=== PATIENT | male | born 1990 | race American Indian/Alaskan Native ===

== ENCOUNTER 2017-03-03 11:07 | Emergency (ER) | payer OTHER ==
[2017-03-03 11:14] VITALS: BP 137/97
[2017-03-03] MEDS ORDERED: NORCO PO ONE (11:51)
[2017-03-03] MEDS ORDERED: BICILLIN L-A IM ONE (11:51)
--- NOTE | 2017-03-03 11:54 | Emergency Department Report ---
ED ENT HPI - General Chief complaint: Dental/Oral Stated complaint: TOOTH ABSCESS Time Seen by Provider: 03/03/17 11:40 Source: patient, family Mode of arrival: Ambulatory Limitations: No Limitations - History of Present Illness MD complaint: tooth pain -: Sudden, days(s) (3) Severity: mild Quality: aching Consistency: constant Worsens with: eating Associated Symptoms: toothache. denies: fever, cough, gum swelling, pain with swallowing, sore throat, tinnitus, hearing loss, discharge from ear, rhinorrhea - Related Data Previous Rx's Medication Instructions Recorded Last Taken Type Amoxicillin 500 mg PO BID #20 capsule 03/03/17 Unknown Rx traMADol [Ultram] 50 mg PO Q6HR PRN #12 tablet 03/03/17 Unknown Rx Allergies Allergy/AdvReac Type Severity Reaction Status Date / Time No Known Allergies Allergy Unverified 03/03/17 11:11 ED Dental HPI - General Chief complaint: Dental/Oral Stated complaint: TOOTH ABSCESS Time Seen by Provider: 03/03/17 11:40 Source: patient Mode of arrival: Ambulatory Limitations: No Limitations - Related Data Previous Rx's Medication Instructions Recorded Last Taken Type Amoxicillin 500 mg PO BID #20 capsule 03/03/17 Unknown Rx traMADol [Ultram] 50 mg PO Q6HR PRN #12 tablet 03/03/17 Unknown Rx Allergies Allergy/AdvReac Type Severity Reaction Status Date / Time No Known Allergies Allergy Unverified 03/03/17 11:11 ED Review of Systems ROS: Stated complaint: TOOTH ABSCESS Other details as noted in HPI Comment: All other systems reviewed and negative ENT: dental pain (left upper rear molar) ED Past Medical Hx - Past Medical History Previous Medical History?: No - Surgical History Past Surgical History?: No - Social History Smoking Status: Current Every Day Smoker - Medications Home Medications: Home Medications Medication Instructions Recorded Confirmed Last Taken Type Amoxicillin 500 mg PO BID #20 capsule 03/03/17 Unknown Rx traMADol [Ultram] 50 mg PO Q6HR PRN #12 tablet 03/03/17 Unknown Rx ED Physical Exam - General Limitations: No Limitations General appearance: alert - Head Head exam: Present: atraumatic - Eye Eye exam: Present: PERRL - ENT ENT exam: Present: mucous membranes moist - Expanded ENT Exam Expanded Mouth exam: Present: normal external inspection. Absent: drooling, trismus, muffled voice, tongue normal, tongue elevation, laceration Teeth exam: Present: dental caries 1 - Other (caries) - Neck Neck exam: Present: normal inspection - Respiratory Respiratory exam: Present: normal lung sounds bilaterally - Cardiovascular Cardiovascular Exam: Present: regular rate - GI/Abdominal GI/Abdominal exam: Present: soft - Extremities Exam Extremities exam: Present: normal inspection - Back Exam Back exam: Present: normal inspection - Neurological Exam Neurological exam: Present: alert, oriented X3, CN II-XII intact - Psychiatric Psychiatric exam: Present: normal affect, normal mood ED Course Vital Signs 03/03/17 11:12 Temperature 98.4 F Pulse Rate 62 Respiratory 20 Rate Blood Pressure 137/97 O2 Sat by Pulse 99 Oximetry ED Medical Decision Making - Medical Decision Making see note - Differential Diagnosis dental abscess v caries Critical care attestation.: If time is entered above; I have spent that time in minutes in the direct care of this critically ill patient, excluding procedure time. ED Disposition Clinical Impression: Pain, dental, Dental caries Disposition: DC- TO HOME OR SELFCARE Is pt being admited?: No Does the pt Need Aspirin: No Condition: Stable Instructions: Dental Caries (ED) Additional Instructions: dmd korina meds as ordered today Time of Disposition: 11:53
== END 2017-03-03 12:44 | disposition home or self-care (01) ==
LOC: ED 11:07
DX: K02.9 Dental caries, unspecified (principal); F17.200 Nicotine dependence, unspecified, uncomplicated
CPT/HCPCS: 96372; 99282; J0561

== ENCOUNTER 2018-10-07 23:28 | Emergency (ER) | payer SELFPAY ==
[2018-10-08 00:34] VITALS: BP 143/91
== END 2018-10-08 15:52 | disposition left against medical advice (07) ==
LOC: ED 23:28
DX: K08.89 Other specified disorders of teeth and supporting structures (principal); Z53.21 Procedure and treatment not carried out due to patient leaving prior to being seen by health care provider

== ENCOUNTER 2018-10-09 03:23 | Emergency (ER) | payer SELFPAY ==
[2018-10-09] MEDS ORDERED: ROCEPHIN/NS 1 GM/50 ML 1 GM/50 ML BAG IV ONE (07:47)
[2018-10-09] MEDS ORDERED: DECADRON IV ONE (07:47)
[2018-10-09] MEDS ORDERED: NACL 0.9% 1000 ML 1,000 ML IV ONE (07:47)
[2018-10-09] MEDS ORDERED: IBUPROFEN PO ONE (07:48)
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
[2018-10-09 09:16] VITALS: BP 133/80
[2018-10-09] MEDS ORDERED: NORCO 5/325 PO ONE (09:29)
[2018-10-09] MEDS ORDERED: TORADOL IV ONE (09:29)
== END 2018-10-09 10:01 | disposition home or self-care (01) ==
LOC: ED 03:23
DX: K04.7 Periapical abscess without sinus (principal); K02.9 Dental caries, unspecified
CPT/HCPCS: 96365; 96375; 99282; J0696; J1100; J1885; J7030

== ENCOUNTER 2018-11-26 08:39 | Emergency (ER) | payer SELFPAY ==
[2018-11-26 08:51] VITALS: BP 133/74
[2018-11-26] MEDS ORDERED: NEOMY 3.5 MG/BACIT 400 UNITS/POLY B 5000 UNITS/GM OINT PACKET TP ONE (09:09)
[2018-11-26] MEDS ORDERED: IBUPROFEN 600 MG TAB PO ONE (09:09)
[2018-11-26] MEDS ORDERED: LIDOCAINE (1%) 10 MG/1 ML VIAL 20 ML MDV INFILTRATI ONE (09:09)
[2018-11-26] MEDS ORDERED: TETANUS,DIPH,PERTUSS(ACELL) VACCINE 0.5 ML SYRINGE IM ONE (09:09)
[2018-11-26] MEDS ORDERED: cephALEXin 500 MG CAP PO ONE (09:09)
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
[2018-11-26] MEDS ORDERED: SODIUM CHLORIDE 0.9% IRR 500 ML BOTTLE IR ONE (10:00)
== END 2018-11-26 11:04 | disposition home or self-care (01) ==
LOC: ED 08:39
DX: S41.111A Laceration without foreign body of right upper arm, initial encounter (principal); J45.909 Unspecified asthma, uncomplicated; F17.200 Nicotine dependence, unspecified, uncomplicated; Z79.899 Other long term (current) drug therapy; Z88.6 Allergy status to analgesic agent; W45.8XXA Other foreign body or object entering through skin, initial encounter; Y93.89 Activity, other specified; Y92.89 Other specified places as the place of occurrence of the external cause; Y99.8 Other external cause status
CPT/HCPCS: 90471; 90715; 96372; 99283; A6250

== ENCOUNTER 2019-11-29 18:16 | Emergency (ER) | payer SELFPAY ==
[2019-11-29 18:20] VITALS: BP 138/94
== END 2019-11-29 21:29 | disposition left against medical advice (07) ==
LOC: ED 18:16
DX: Z53.21 Procedure and treatment not carried out due to patient leaving prior to being seen by health care provider (principal)

== ENCOUNTER 2019-11-30 02:50 | Emergency (ER) | payer SELFPAY ==
[2019-11-30 03:02] VITALS: BP 129/88
[2019-11-30] MEDS ORDERED: DIPHtheria,PERTUSSIS(ACELL),TETANUS VACCINE/PF 0.5 ML VIAL IM ONE (03:07)
[2019-11-30] MEDS ORDERED: LIDOCAINE (1%) 10 MG/1 ML VIAL 20 ML MDV INFILTRATI ONE (03:08)
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
[2019-11-30] MEDS ORDERED: LIDOCAINE 1%/EPINEPHRINE 1:100,000 VIAL (20 ML) INFILTRATI ONE (03:15)
[2019-11-30] MEDS ORDERED: traMADol 50 MG TAB PO ONE (04:55)
== END 2019-11-30 05:37 | disposition home or self-care (01) ==
LOC: ED 02:50
DX: S31.821A Laceration without foreign body of left buttock, initial encounter (principal); J45.909 Unspecified asthma, uncomplicated; F17.200 Nicotine dependence, unspecified, uncomplicated; Z79.899 Other long term (current) drug therapy; Z88.6 Allergy status to analgesic agent; X58.XXXA Exposure to other specified factors, initial encounter; Y93.89 Activity, other specified; Y92.89 Other specified places as the place of occurrence of the external cause; Y99.8 Other external cause status
CPT/HCPCS: 90471; 90715; 99282